=== PATIENT | female | born 1985 | race Caucasian/White ===

== ENCOUNTER 2017-09-24 07:44 | Emergency (ER) | payer BC ==
[2017-09-24 08:20] VITALS: BP 129/85
--- NOTE | 2017-09-24 09:46 | UC ---
Skin Complaint HPI - HPI Summary HPI Summary: 32 year old female with skin complaint. Left upper inner thigh painful rash with raised area, redness onset about 09/19/17 as one lesion and now spreading; headache Had some mild discharge in the area yesterday in the shower . She thinks she had a pimple or hair follicle that got infected. pain with movement at work yesterday [ End ] - History of Current Complaint Chief Complaint: UCSkin Time Seen by Provider: 09/24/17 09:36 Stated Complaint: PERSONAL COMPLAINT Hx Obtained From: Patient Hx Last Menstrual Period: 09/15/17 Onset/Duration: Gradual Onset Pain Intensity: 7 - Allergy/Home Medications Allergies/Adverse Reactions: Allergies Allergy/AdvReac Type Severity Reaction Status Date / Time No Known Allergies Allergy Verified 09/24/17 08:07 Home Medications: Home Medications Ibuprofen TAB* [Advil TAB*] 400 mg PO ONCE PRN 09/24/17 [History Confirmed 09/24] Ortho Tri-Cyclen Lo 1 tab PO DAILY 09/24/17 [History Confirmed 09/24/17] Vicks Nyquil Cough And Cold 1 dose PO ONCE PRN 09/24/17 [History Confirmed 09/24] Review of Systems Skin: Other - redness inner left thigh Is Patient Immunocompromised?: No All Other Systems Reviewed And Are Negative: Yes PMH/Surg Hx/FS Hx/Imm Hx Previously Healthy: Yes - Surgical History Surgical History: None - Family History Known Family History: Positive: None - Social History Occupation: Employed Full-time Alcohol Use: Occasionally Substance Use Type: None Smoking Status (MU): Never Smoked Tobacco Physical Exam Triage Information Reviewed: Yes Appearance: Well-Appearing, Pain Distress - mild Vital Signs: Initial Vital Signs Temp 99.7 F 09/24/17 08:11 Pulse 103 09/24/17 08:11 Resp 18 09/24/17 08:11 BP 129/85 09/24/17 08:11 Pulse Ox 100 09/24/17 08:11 Vital Signs Reviewed: Yes Eyes: Positive: Conjunctiva Clear ENT: Positive: Hearing grossly normal Respiratory: Positive: No respiratory distress Musculoskeletal: Positive: Strength Intact Neurological Exam: Normal Psychological Exam: Normal Skin: Positive: Other - medial thigh left with palpable / indurated redness 3x4 cm and in the center dried blood . superficial. no streaking. circumferentuial erythema around the abscess . no active discharge. tender to palpation Course/Dx - Course Course Of Treatment: discussed I&D and pt declined - she will go home and hot pack throughout the day and if drainage occurs finish antibiotics but if the draiange does not occur and the leg abscess worsens in pain pr redness spreads then RTO for I&D -- per pt the scant amount of drainage from the apex of the abscess was purulent ./ yellow/white - Differential Diagnoses - Skin Complaint Differential Diagnoses: Abscess, MRSA - Diagnoses Provider Diagnoses: left medial thigh abscess / cellulitis Discharge - Discharge Plan Condition: Good Disposition: HOME Prescriptions: Doxycycline Monohydrate [Mondoxyne Nl] 100 mg PO BID #20 capsule Patient Education Materials: Abscess (ED) Forms: *Work Release Referrals: Sulema Winkler MD [Primary Care Provider] - 4 Days Additional Instructions: As we discussed if your redness in the thigh or the pain in the thigh worsens and no drainage of the abscess then return to the office for further evaluation and potential drainage of the abscess.
== END 2017-09-24 09:59 | disposition home or self-care (01) ==
LOC: UCCORT 07:44
DX: L02.416 Cutaneous abscess of left lower limb (principal)
CPT/HCPCS: 99212; G0463

== ENCOUNTER 2017-09-26 09:00 | Emergency (ER) | payer BC ==
--- NOTE | 2017-09-26 10:47 | UC ---
Skin Complaint HPI - HPI Summary HPI Summary: PT NOTES INFECTION l INNER THIGH SINCE 09/19/17. WAS SEEN HERE 2 DAYS AGO AND TX WITH DOXYCYCLINE. THINKS SITE MAY BE A LITTLE BETTER. NO N/V, HX DM OR MRSA. DENIES FEVER. - History of Current Complaint Time Seen by Provider: 09/26/17 10:33 Stated Complaint: RE-CHECK SKIN COMPLAINT Hx Obtained From: Patient Hx Last Menstrual Period: 09/15/17 ?: No Onset/Duration: Gradual Onset Timing: Constant Location: Discrete Character: Swelling, Raised, Painful Alleviating Factor(s): Other - MAYBE A LITTLE BETTER WITH ANTIBIOTIC Associated Signs & Symptoms: Negative: Nausea, Vomiting, Shivering, Fever, Chills - Allergy/Home Medications Allergies/Adverse Reactions: Allergies Allergy/AdvReac Type Severity Reaction Status Date / Time No Known Allergies Allergy Verified 09/24/17 08:07 Home Medications: Home Medications Melatonin/Pyridoxine HCl (B6) [Melatonin] 1 tab PO SEE INSTRUCTIONS 09/26/17 [ History Confirmed 09/26/17] Review of Systems Constitutional: Negative Skin: Other - DRAINING INFECTION L THIGH Eyes: Negative ENT: Negative Respiratory: Negative Cardiovascular: Negative Gastrointestinal: Negative Genitourinary: Negative Motor: Negative Neurovascular: Negative Musculoskeletal: Negative Neurological: Negative Psychological: Negative Is Patient Immunocompromised?: No All Other Systems Reviewed And Are Negative: Yes PMH/Surg Hx/FS Hx/Imm Hx Previously Healthy: Yes - Surgical History Surgical History: None - Family History Known Family History: Positive: None - Social History Occupation: Employed Full-time Lives: With Family Alcohol Use: Occasionally Substance Use Type: None Smoking Status (MU): Never Smoked Tobacco - Immunization History Vaccination Up to Date: Yes Physical Exam Triage Information Reviewed: Yes Appearance: Well-Appearing Vital Signs Reviewed: Yes Eyes: Positive: Conjunctiva Clear ENT: Positive: Normal ENT inspection Neck: Positive: Supple, Nontender, No Lymphadenopathy Respiratory: Positive: Lungs clear, Normal breath sounds Cardiovascular: Positive: RRR, No Murmur Abdomen Description: Positive: Nontender, No Organomegaly, Soft, Other: - NO INGUINAL ADENOPATHY Musculoskeletal: Positive: ROM Intact Neurological: Positive: Alert Psychological: Positive: Age Appropriate Behavior Skin Exam: Normal Skin: Positive: Other - 4" AREA OF ERYTHEMA L UPPER INNER THIGH, CENTRAL OPENING WITH SCANT DRAINING PUSS(CULTURED), AREA INDURATED BUT CENTER FLUCTUANT. SITE VERY TENDER. NO STREAKING. Course/Dx - Course Course Of Treatment: EXAM C/W ABSCESS AND FLUCTUANCE. ADVISED PT THAT I&D INDICATED GIVEN COLLECTION OF PUSS. PT AGREES TO PROCEDDURE. PROCEDURE: L INNER THIGH PREP BETADINE. LINEAR LOCAL WITH THE LIDOCAINE(2ML). TIP #11 BLADE USED TO MAKE A SUPERFICIAL INCISION. MODERATE-LARGE AMOUNT OF PUSS DRAINED. IRRIGATED WITH STERILE WATER. SMALL PACK PLACED. STERILE TECHNIQUE USED. SITE COVERED WITH GAUZE THAT HAD THIN LAYER OF TOPICAL ANTIBIOTIC. SCANT BLLEED ONLY. NO ODOR. PT TOLERATED WELL. - Diagnoses Provider Diagnoses: I&D ABSCESS LEFT INNER THIGH Discharge - Discharge Plan Condition: Stable Disposition: HOME Patient Education Materials: Incision and Drainage (ED) Forms: *Work Release Referrals: Sulema Winkler MD [Primary Care Provider] - 2 Days Additional Instructions: COMPLETE THE ANTIBIOTIC(DOXYCYCLINE) DIRECTED RETURN HERE IF NOT ABLE TO F/U WITH YOUR DOCTOR DIRECTED. FOLLOW UP IMMEDIATELY FOR ANY WORSENING.
[2017-09-26] MEDS ORDERED: Lidocaine 2% PF * 5 ML VIAL INJ ONE (10:49)
[2017-09-26 10:55] VITALS: BP 109/63
[2017-09-26] MEDS ORDERED: Ibuprofen ADULT LIQ* 600 MG/30 ML UDC PO ONE (11:21)
--- NOTE | 2017-09-26 17:10 | UC ---
- Progress Note Progress Note: Need to call patient. Positive MRSA. Doxycycline should resolve it.
== END 2017-09-26 11:48 | disposition home or self-care (01) ==
LOC: UCCORT 09:00
DX: L02.416 Cutaneous abscess of left lower limb (principal); B95.62 Methicillin resistant Staphylococcus aureus infection as the cause of diseases classified elsewhere
CPT/HCPCS: 10060; 87070; 87077; 87186; 87205; 87640; 87641; 99212; A9270-GY; G0463